=== PATIENT | male | born 1965 | race African-American/Black ===

== ENCOUNTER 2022-11-26 11:14 | Inpatient (IN) | payer OTHER ==
[2022-11-26 12:05] VITALS: BMI 20.1
[2022-11-26] MEDS ORDERED: ONDANSETRON *ODT* 4 MG TABLET SL PRN (16:55)
[2022-11-26] MEDS ORDERED: ACETAMINOPHEN 325 MG TABLET (FP) PO PRN (16:55)
[2022-11-26] MEDS ORDERED: guaiFENesin 600 MG TABLET.ER (FP) PO PRN (16:55)
[2022-11-26] MEDS ORDERED: IBUPROFEN 400 MG TABLET (FP) PO PRN (16:55)
[2022-11-26] MEDS ORDERED: NALOXONE HCL (KLOXXADO) 8 MG SPRAY NS PRN (16:55)
[2022-11-26] MEDS ORDERED: DICYCLOMINE HCL 10 MG CAPSULE PO PRN (16:55)
[2022-11-26] MEDS ORDERED: IBUPROFEN 600 MG TABLET (FP) PO PRN (16:55)
[2022-11-26] MEDS ORDERED: MAGNESIUM HYDROX 2400MG/30ML ORAL SUSPENSION 30 ML CUP PO PRN (16:55)
[2022-11-26] MEDS ORDERED: LOPERAMIDE HCL 2 MG CAPSULE PO PRN (16:55)
[2022-11-26] MEDS ORDERED: BISMUTH SUBSALICYLATE 524 MG/30 ML PO PRN (16:55)
[2022-11-26] MEDS ORDERED: NALOXONE HCL 0.4 MG/ML VIAL IM PRN (16:55)
[2022-11-26] MEDS ORDERED: BENZOCAINE/MENTHOL (CHLORASEPTIC ) LOZENGE MM PRN (16:55)
[2022-11-26] MEDS ORDERED: MAG HYDROX/AL HYDROX/SIMETH 30 ML UNIT-DOSE CUP PO PRN (16:55)
[2022-11-26] MEDS ORDERED: POLYETHYLENE GLYCOL (HEALTHYLAX) 3350 17 GM PACKET PO PRN (16:55)
[2022-11-26] MEDS ORDERED: BENZONATATE 200 MG CAPSULE PO PRN (16:55)
[2022-11-26] MEDS: MELATONIN 5 MG TABLETS PO SCH (22:53)
[2022-11-26] MEDS: THIAMINE HCL 100 MG TABLET (FP) PO SCH (22:53)
[2022-11-27] MEDS ORDERED: LORazepam 1 MG TABLET PO PRN (08:46)
[2022-11-27] MEDS: hydrOXYzine PAMOATE 25 MG CAPSULE (FP) PO PRN (10:15)
[2022-11-27] MEDS: LORazepam 2 MG TABLET PO SCH ×3 (10:15→22:18)
[2022-11-27] MEDS: METHOCARBAMOL 500 MG TABLET PO PRN (10:15)
[2022-11-27] MEDS: PRENATAL VITAMINS W/ FOLIC ACID TABLET (FP) PO SCH (10:15)
[2022-11-27 11:37] LABS: HEMATOCRIT 40.8 % (35.4-49); HEMOGLOBIN 13.3 GM/dL (11.7-16.9); MCH 31.4 pg (25.7-33.7); MCHC 32.7 g/dl (32.0-35.9); MEAN CELL VOLUME 95.8 fl (80-96); MEAN PLT VOLUME 9.2 fl (7.5-11.1); PLATELET COUNT 195 10^3/uL (134-434); RBC 4.25 M/mm3 (4.00-5.60); RDW 14.7 % (11.9-15.9); WHITE BLOOD COUNT 6.2 K/mm3 (4.0-10.0)
[2022-11-27 12:08] LABS: POTASSIUM 3.9 mmol/L (3.5-5.1)
[2022-11-27 12:11] LABS: CALCIUM 8.6 mg/dL (8.5-10.1)
[2022-11-27 12:12] LABS: BLOOD UREA NITROGEN 16.8 mg/dL (7-18)
[2022-11-27 12:14] LABS: CREATININE 0.9 mg/dL (0.55-1.3)
[2022-11-27 12:16] LABS: TOT PROT 6.4 g/dl (6.4-8.2)
[2022-11-27] MEDS: THIAMINE HCL 100 MG TABLET (FP) PO SCH (22:18)
[2022-11-27] MEDS: MELATONIN 5 MG TABLETS PO SCH (22:20)
[2022-11-28] MEDS ORDERED: LORazepam 0.5 MG TABLET ONE (04:29)
[2022-11-28] MEDS: LORazepam 1 MG TABLET PO SCH ×4 (05:33→22:16)
[2022-11-28] MEDS: hydrOXYzine PAMOATE 25 MG CAPSULE (FP) PO PRN (10:17)
[2022-11-28] MEDS: PRENATAL VITAMINS W/ FOLIC ACID TABLET (FP) PO SCH (10:17)
[2022-11-28] MEDS: METHOCARBAMOL 500 MG TABLET PO PRN (10:17)
[2022-11-28] MEDS: THIAMINE HCL 100 MG TABLET (FP) PO SCH (22:16)
[2022-11-28] MEDS: MELATONIN 5 MG TABLETS PO SCH (22:16)
[2022-11-29] MEDS ORDERED: LORazepam 0.5 MG TABLET PO PRN
[2022-11-29] MEDS: LORazepam 0.5 MG TABLET PO SCH ×4 (05:29→22:21)
[2022-11-29] MEDS: PRENATAL VITAMINS W/ FOLIC ACID TABLET (FP) PO SCH (10:29)
[2022-11-29] MEDS: METHOCARBAMOL 500 MG TABLET PO PRN (10:29)
[2022-11-29] MEDS: hydrOXYzine PAMOATE 25 MG CAPSULE (FP) PO PRN (10:29)
[2022-11-29] MEDS: NICOTINE POLACRILEX 2 MG GUM BUC PRN ×2 (12:29→17:29)
[2022-11-29] MEDS: NICOTINE 10 MG CARTRIDGE (INHALER) IH SCH (12:33)
[2022-11-29] MEDS: THIAMINE HCL 100 MG TABLET (FP) PO SCH (22:21)
[2022-11-29] MEDS: MELATONIN 5 MG TABLETS PO SCH (22:22)
[2022-11-30] MEDS ORDERED: LORazepam 0.5 MG TABLET PO ONE (05:00)
[2022-11-30] MEDS: NICOTINE POLACRILEX 2 MG GUM BUC PRN ×2 (05:39→10:05)
[2022-11-30 09:29] VITALS: RESP 18
[2022-11-30] MEDS: NICOTINE 10 MG CARTRIDGE (INHALER) IH SCH (10:05)
[2022-11-30] MEDS: PRENATAL VITAMINS W/ FOLIC ACID TABLET (FP) PO SCH (10:05)
[2022-11-30 13:13] VITALS: BP 137/84; PULSE 81; TEMP 97.6
== END 2022-11-30 13:13 | disposition home or self-care (01) | DRG 897 ==
LOC: YASAS 11:14 → SUATTDRO 11:14 → Y6N 16:41
PROVIDERS: ADMIT Allergy & Immunology; ATTEND Allergy & Immunology
PROC: HZ2ZZZZ Detoxification Services for Substance Abuse Treatment (ICD-10-PCS; principal; 2022-11-26)
DX: F10.230 Alcohol dependence with withdrawal, uncomplicated (principal); F14.20 Cocaine dependence, uncomplicated; F12.20 Cannabis dependence, uncomplicated; F17.220 Nicotine dependence, chewing tobacco, uncomplicated
CPT/HCPCS: 36415; 80053; 85027; 86780; 87635; 87811